=== PATIENT | female | born 1990 | race Caucasian/White ===

== ENCOUNTER 2018-07-26 19:43 | Emergency (ER) | payer MEDICAID ==
[~2018-07-26] VITALS: Ht 177.8 cm; Wt 62.3 kg
[2018-07-26 20:03] VITALS: Ht 177.8 cm; Wt 62.3 kg
[2018-07-26] MEDS ORDERED: SULFAMETHOXAZOL1 TA3 PO (20:05)
[2018-07-26] MEDS ORDERED: ALDACTONE50 MG PO (20:05)
[2018-07-26] MEDS ORDERED: ROBAXIN500 MG PO (21:43)
[2018-07-26] MEDS ORDERED: TORADOL10 MG PO (21:43)
[2018-07-26 22:00] VITALS: BP 122/76
== END 2018-07-26 22:00 | disposition home or self-care (01) ==
LOC: D.ER 19:43
DX: S00.93XA Contusion of unspecified part of head, initial encounter (principal); V43.52XA Car driver injured in collision with other type car in traffic accident, initial encounter; Y93.89 Activity, other specified; Y92.410 Unspecified street and highway as the place of occurrence of the external cause; S16.1XXA Strain of muscle, fascia and tendon at neck level, initial encounter

== ENCOUNTER 2019-08-19 17:42 | Emergency (ER) | payer OTHER ==
[~2019-08-19] VITALS: Ht 177.8 cm; Wt 58.2 kg
[~2019-08-19 17:42] MED LIST: ALDACTONE50 MG PO; ROBAXIN500 MG PO; SULFAMETHOXAZOL1 TA3 PO; TORADOL10 MG PO
[2019-08-19 17:53] VITALS: Ht 177.8 cm; Wt 58.2 kg
[2019-08-19] MEDS ORDERED: STRATTERA80 MG PO (17:54)
[2019-08-19 18:18] LABS: HEMATOCRIT 42.3 % (36.0-48.0); HEMOGLOBIN 14.2 g/dL (12-16); LYMPHOCYTES 28.5 % (15-50); MCH 29.6 pg (26.0-34.0); MCHC 33.6 g/dL (31.0-37.0); MCV 88.1 fL (80.0-100.0); MEAN PLATELET VOLUME 9.3 fL (7.4-10.4); NEUTROPHILS 64.6 % (40-80); PLATELET COUNT 231 10x3/uL (130-400); RDW 11.8 % (11.5-14.5); WBC 6.1 10x3/uL (4.8-10.8)
[2019-08-19 18:31] LABS: CALC OSMOLALITY 275 mosm/kg (275-300); CALCIUM 9.3 mg/dL (8.5-10.1); CARBON DIOXIDE 25.8 mmol/L (21.0-32.0); CHLORIDE - SERUM 103 mmol/L (98-107); CREATININE - SERUM 0.8 mg/dL (0.6-1.3); SODIUM 139 mmol/L (136-145); UREA NITROGEN 12 mg/dL (7-18); eGFR NON AFRICAN AMERICAN 90 mL/min (90-120)
[2019-08-19 18:33] LABS: GLUCOSE 63 mg/dL (74-106)
[2019-08-19 18:47] LABS: ALBUMIN 4.3 g/dL (3.4-5.0); ALKALINE PHOSPHATASE 49 U/L (30-120); ALT (SGPT) 24 U/L (10-68); BILIRUBIN - TOTAL 0.61 mg/dL (0.2-1.3); PROTEIN - SERUM 8.2 g/dL (6.4-8.2)
[2019-08-19 19:59] VITALS: BP 108/59
== END 2019-08-19 19:57 | disposition home or self-care (01) ==
LOC: D.ER 17:42
PROVIDERS: Family Medicine
DX: R05 Cough (principal); R09.89 Other specified symptoms and signs involving the circulatory and respiratory systems; R06.02 Shortness of breath; J45.909 Unspecified asthma, uncomplicated; Z72.0 Tobacco use; Z20.828 Contact with and (suspected) exposure to other viral communicable diseases

== ENCOUNTER 2019-10-19 16:20 | Inpatient (IN) | payer OTHER ==
[~2019-10-19] VITALS: Ht 177.8 cm; Wt 59.1 kg
[~2019-10-19 16:20] MED LIST changes: +STRATTERA80 MG PO
[2019-10-19 17:42] LABS: BASOPHILS 0.1 % (0-2); EOSINOPHILS 1.2 % (0-7); HEMATOCRIT 38.8 % (36.0-48.0); HEMOGLOBIN 13.2 g/dL (12-16); LYMPHOCYTES 15.4 % (15-50); MCH 29.9 pg (26.0-34.0); MEAN PLATELET VOLUME 9.2 fL (7.4-10.4); MONOCYTES 4.2 % (2-11); NEUTROPHILS 78.1 % (40-80); PLATELET COUNT 222 10x3/uL (130-400); RBC 4.41 10x6/uL (4.00-5.40); WBC 7.4 10x3/uL (4.8-10.8)
[2019-10-19 17:54] LABS: INR 1.12 (0.85-1.17); PROTIME 14.3 SECONDS (11.6-15.0)
[2019-10-19 17:55] LABS: CALC OSMOLALITY 271 mosm/kg (275-300); CALCIUM 8.6 mg/dL (8.5-10.1); CARBON DIOXIDE 27.8 mmol/L (21.0-32.0); CHLORIDE - SERUM 103 mmol/L (98-107); CREATININE - SERUM 0.9 mg/dL (0.6-1.3); GLUCOSE 92 mg/dL (74-106); POTASSIUM - SERUM 3.5 mmol/L (3.5-5.1); SODIUM 137 mmol/L (136-145); UREA NITROGEN 8 mg/dL (7-18); eGFR NON AFRICAN AMERICAN 78 mL/min (90-120)
[2019-10-19 17:56] LABS: HCG SERUM NEGATIVE (NEGATIVE)
[2019-10-19 18:01] LABS: ALBUMIN 3.9 g/dL (3.4-5.0); ALKALINE PHOSPHATASE 41 U/L (30-120); ALT (SGPT) 30 U/L (10-68); BILIRUBIN - TOTAL 0.61 mg/dL (0.2-1.3); PROTEIN - SERUM 7.3 g/dL (6.4-8.2)
[2019-10-19 19:16] VITALS: BP 106/40
--- NOTE | 2019-10-19 20:10 | NUR ---
RECEIVED PT TO FLOOR FROM ER VIA STRETCHER. PT APPEARS TO BE HAVING MUSCLE SPASMS. RATES PAIN 7/10. ASSISTED PT UP TO BATHROOM. PT UNSTEADY GAIT AND NEEDS ASSISTANCE GETTING UP AND DOWN. REVIEWED HOME MEDS AND HISTORY. NO OTHER NEEDS. WILL REASSESS AND CONTINUE TO MONITOR.
[2019-10-19] MEDS ORDERED: SMZ/TMP DS TAB 800 PO (20:17)
[2019-10-19] MEDS ORDERED: MIDOL CAPLET1 EACH (20:18)
[2019-10-20 00:42] VITALS: Ht 177.8 cm; Wt 59.1 kg
[2019-10-20 04:00] VITALS: BP 101/49
[2019-10-20 06:15] LABS: BASOPHILS 0 % (0-2); EOSINOPHILS 0 % (0-7); HEMATOCRIT 38.3 % (36.0-48.0); IMMATURE GRANULOCYTES 0.1 % (0-5); LYMPHOCYTES 4.1 % (15-50); MCH 29.7 pg (26.0-34.0); MCHC 33.9 g/dL (31.0-37.0); MCV 87.4 fL (80.0-100.0); MEAN PLATELET VOLUME 9.3 fL (7.4-10.4); MONOCYTES 2.2 % (2-11); NEUTROPHILS 93.6 % (40-80); PLATELET COUNT 231 10x3/uL (130-400); RBC 4.38 10x6/uL (4.00-5.40); RDW 11.9 % (11.5-14.5); WBC 8.7 10x3/uL (4.8-10.8)
[2019-10-20 06:24] LABS: CALC OSMOLALITY 276 mosm/kg (275-300); CALCIUM 8.4 mg/dL (8.5-10.1); CHLORIDE - SERUM 104 mmol/L (98-107); CREATININE - SERUM 0.8 mg/dL (0.6-1.3); GLUCOSE 163 mg/dL (74-106); INR 1.08 (0.85-1.17); POTASSIUM - SERUM 4.1 mmol/L (3.5-5.1); SODIUM 137 mmol/L (136-145); UREA NITROGEN 11 mg/dL (7-18); eGFR NON AFRICAN AMERICAN 90 mL/min (90-120)
[2019-10-20 09:07] VITALS: BP 107/67
[2019-10-20 12:26] VITALS: BP 113/64
[2019-10-20 17:10] VITALS: BP 156/74
--- NOTE | 2019-10-20 19:47 | NUR ---
NOTIFIED CLARISA SHETH OF PATIENT NEEDING SOMETHING TO HELP HER SLEEP AND TINGLING AND FINGERS AND FEET. NEW ORDERS RECIEVED FOR SLEEP AND STATED TO MONITOR TINGLING AND LET PACE KNOW IF NEEDED.
--- NOTE | 2019-10-20 20:40 | NUR ---
LYING IN BED. ALERT AND ORIENTED X4. RESP SHALLOW, NONLABORED. C/O TINGLING IN BILAT HANDS AND "HEELS". REPORTS PAIN IN NECK, BACK AND COCCYX RATING 6. HAS INSURANCE APPLICATION INVESTIGATOR MORPHINE INFUSING WITH 1/2 NS @ 10 ML/HR INFUSING IN RT AC WITHOUT HEAT, EDEMA OR REDNESS. MEDICATED WITH ROBAXIN AND VISTARIL. SCDS IN USE BILAT. HAS BEEN USING I.S. AMB WITH ASSIST X1 TO BR TO VOID. GAIT IS UNSTEADY. SR ELEVATED X2. CL IN REACH.
[2019-10-20 20:45] VITALS: BP 119/64
--- NOTE | 2019-10-20 21:51 | NUR ---
MEDICATED WITH BENADRYL FOR C/O INSOMNIA. CL IN REACH.
--- NOTE | 2019-10-20 22:30 | NUR ---
REQUESTED THAT MIDNIGHT V/S NOT BE TAKEN IF SHE WAS ASLEEP.
--- NOTE | 2019-10-21 00:10 | NUR ---
RESTING QUIETLY WITH EYES CLOSED. NO DISTRESS. RESP NONLABORED. CL IN REACH.
--- NOTE | 2019-10-21 01:41 | NUR ---
LYING ON LT SIDE WITH EYES CLOSED. RESP NONLABORED. NO DISTRESS. CL IN REACH.
--- NOTE | 2019-10-21 02:45 | NUR ---
MEDICATED WITH VISTARIL PER REQUEST FOR C/O SPASMS IN NECK AND BACK. CL IN REACH.
--- NOTE | 2019-10-21 04:40 | NUR ---
MEDICATED WITH ROBAXIN FOR C/O MUSCLE SPASMS IN NECK AND BACK. CL IN REACH.
[2019-10-21 04:49] LABS: BASOPHILS 0 % (0-2); EOSINOPHILS 0 % (0-7); HEMATOCRIT 35.8 % (36.0-48.0); IMMATURE GRANULOCYTES 0.3 % (0-5); LYMPHOCYTES 2.8 % (15-50); MCH 29.4 pg (26.0-34.0); MCHC 33.5 g/dL (31.0-37.0); MCV 87.7 fL (80.0-100.0); MONOCYTES 2.6 % (2-11); NEUTROPHILS 94.3 % (40-80); PLATELET COUNT 216 10x3/uL (130-400); RBC 4.08 10x6/uL (4.00-5.40)
[2019-10-21 05:05] LABS: ALBUMIN 3.3 g/dL (3.4-5.0); ALKALINE PHOSPHATASE 40 U/L (30-120); ALT (SGPT) 22 U/L (10-68); CALC OSMOLALITY 281 mosm/kg (275-300); CALCIUM 8.1 mg/dL (8.5-10.1); CARBON DIOXIDE 27.8 mmol/L (21.0-32.0); CHLORIDE - SERUM 105 mmol/L (98-107); CREATININE - SERUM 0.8 mg/dL (0.6-1.3); GLUCOSE 134 mg/dL (74-106); PROTEIN - SERUM 6.7 g/dL (6.4-8.2); SODIUM 141 mmol/L (136-145); UREA NITROGEN 9 mg/dL (7-18); eGFR NON AFRICAN AMERICAN 90 mL/min (90-120)
[2019-10-21 05:09] LABS: WBC 18.4 10x3/uL (4.8-10.8)
[2019-10-21 05:27] VITALS: BP 110/54
[2019-10-21 08:08] VITALS: BP 97/50
--- NOTE | 2019-10-21 17:00 | NUR ---
OT NOTE: WILL COMPLETE OT EVAL UPON ARRIVAL OF TLSO SECONDARY TO PAIN. ROHITH OTERO,OTR/L
[2019-10-21 17:47] VITALS: BP 109/62
--- NOTE | 2019-10-21 19:30 | NUR ---
PT SITTING UP IN BED WITHOUT DISTRESS, AOX4. IV RIGHT AC INFUSING NS @ 10 WITH DILAUDID HR MANAGER IN PLACE. PT STATES HR MANAGER IS HELPING CONTROL PAIN AT THIS TIME. ROBAXIN GIVEN FOR INTERMITTENT SPASMS. HS MEDS GIVEN. PT STATES RIGHT AV IV SORE, SLIGHTLY RED TO TOUCH. REQUESTED TO BE RESITED. IV RESITED TO LEFT FA X3 ATTEMPTS. REMOVED RIGHT AC WITH CATHETER INTACT. DENIES OTHER NEEDS AT THIS TIME. CL IN REACH, WILL CTM
[2019-10-21 20:00] VITALS: BP 106/61
--- NOTE | 2019-10-21 22:00 | NUR ---
PT SITTING UP IN BED, STATES SHE IS HAVING MORE PAIN AT THIS TIME AFTER AMBULATING TO BATHROOM WITH ASSIST FROM SIGNIFICANT OTHER. VISTARIL GIVEN. PT REQUESTED BENADRYL FOR SLEEP D/T STERIODS KEEPING HER AWAKE. GAVE ORDERED. PROVIDED PT A FAN. STATES IF SHE IS ASLEEP SHE IS REFUSING MIDNIGHT VITALS. DENIES OTHER NEEDS AT THIS TIME. CL IN REACH, WILL CTM
--- NOTE | 2019-10-22 03:30 | NUR ---
ASSISTED PT UP TO BATHROOM. PT DID NOT TOLERATE WELL. SPASMS IN GROIN AREA AND DOWN LEGS. VERY PAINFUL TO PUT WEIGHT ON COCCYX. ONCE ASSISTED BACK IN BED AND POSITIONED FOR COMFORT, DILAUDID BOLUS AND ROBAXIN GIVEN. PT SLEPT ABOUT 5 HOURS AND STATES SHE JUST FELT STIFF. PT HAD NOT USED BRANCH COORDINATOR MUCH DURING THIS TIME WELL. PT ALREADY RELAXING SLIGHTLY BEFORE LEAVING ROOM. WILL CTM
[2019-10-22 04:00] VITALS: BP 109/59
[2019-10-22 07:22] LABS: BASOPHILS 0 % (0-2); EOSINOPHILS 0 % (0-7); HEMATOCRIT 35.9 % (36.0-48.0); HEMOGLOBIN 11.9 g/dL (12-16); IMMATURE GRANULOCYTES 0.3 % (0-5); MCH 29.4 pg (26.0-34.0); MCHC 33.1 g/dL (31.0-37.0); MCV 88.6 fL (80.0-100.0); MONOCYTES 3.9 % (2-11); NEUTROPHILS 90.8 % (40-80); PLATELET COUNT 194 10x3/uL (130-400); RBC 4.05 10x6/uL (4.00-5.40); RDW 12.1 % (11.5-14.5)
[2019-10-22 07:28] LABS: WBC 12.1 10x3/uL (4.8-10.8)
[2019-10-22 07:50] LABS: ALBUMIN 3.3 g/dL (3.4-5.0); ALKALINE PHOSPHATASE 37 U/L (30-120); ALT (SGPT) 24 U/L (10-68); BILIRUBIN - TOTAL 0.22 mg/dL (0.2-1.3); CALC OSMOLALITY 274 mosm/kg (275-300); CALCIUM 8.2 mg/dL (8.5-10.1); CARBON DIOXIDE 26.1 mmol/L (21.0-32.0); CHLORIDE - SERUM 104 mmol/L (98-107); CREATININE - SERUM 0.7 mg/dL (0.6-1.3); GLUCOSE 138 mg/dL (74-106); POTASSIUM - SERUM 3.9 mmol/L (3.5-5.1); PROTEIN - SERUM 6.6 g/dL (6.4-8.2); SODIUM 137 mmol/L (136-145); UREA NITROGEN 9 mg/dL (7-18); eGFR NON AFRICAN AMERICAN > 90 mL/min (90-120)
[2019-10-22 08:00] VITALS: BP 118/62
--- NOTE | 2019-10-22 10:49 | MORECARE ---
CASE MANAGEMENT DISCHARGE SUMMARY PATIENT: EDEL VAZ UNIT: [id number] ADM DATE: 10/20/19 AGE: 29 : 90 SEX: F ROOM/BED: D.2234 AUTHOR: BOOM MCGUIRE PHYSICIAN: REFERRING PHYSICIAN: [place] MD DATE OF SERVICE: 10/22/19 Discharge Plan Patient Name: EDEL VAZ Facility: [facility]:[place] : 1990 Planned Disposition: Anticipated Discharge Date: Discharge Date: Expected LOS: Initial Reviewer: [id number] Initial Review Date: 10/22/2019 Generated: 10/22/19 11:49 am Comments DCP- Discharge Planning Updated by [id number]: Nayla Edwards on 10/22/19 9:[address] Patient Name: EDEL VAZ Admission Status: ER Accout number: [id number] Admission Date: 10-20-2019 : 1990 Admission Diagnosis: Attending: [place] Current LOS: 2 Anticipated DC Date: Planned Disposition: Primary Insurance: [facility] MANAGED MEDICAID Discharge Planning Comments: CM met with patient at bedside after explaining CM role and obtaining verbal consent. CM discussed availability / needs of home health, REHAB and medical equipment. PATIENT STATES IF NEEDS PT WOULD LIKE [facility] FOR PT. BE SIGNED. CM WILL FOLLOW AND ASSIST NEEDED. Surface Logging Systems Logger: Nayla Edwards DCPIA - Discharge Planning Initial Assessment Updated by [email or web address]: Nayla Edwards on 10/22/19 10:47 am * Is the patient Alert and Oriented? Yes * PCP NONE * Pharmacy [facility] * Preadmission Environment Home with Family * ADLs Independent * Can the patient safely return to the preadmission environment? Yes * Has this patient been hospitalized within the prior 30 days at any hospital? No Coverage Notice Reviewer: [id number] - Nayla Edwards Notice Issued Date-Time: 10/22/2019 10:49 Notice Type: Patient Choice Letter Notice Delivered To: Relationship to Patient: Guest Services Associate Name: Delivery Method: - Magda Days: Prior Verbal Notification: Recipient Understood Notice: Recipient Signature: Med Rec Note Co-signed by Attending: Coverage Notice Comment: Patient Name: EDEL VAZ Page [phone] at 1049 All edits/amendments must be made on the electronic document DICTATION DATE: 10/22/191048 MAINTENANCE HELPER: TAISHA 10/22/19 1049 RPT#: [id number] DC DATE: STATUS: ADM IN [facility] [address] [place] [address] END OF REPORT
--- NOTE | 2019-10-22 10:58 | MORECARE ---
CASE MANAGEMENT DISCHARGE SUMMARY PATIENT: EDEL VAZ UNIT: [id number] ADM DATE: 10/20/19 AGE: 29 : 90 SEX: F ROOM/BED: D.2234 AUTHOR: MAYNOR,DOC PHYSICIAN: REFERRING PHYSICIAN: [place] MD DATE OF SERVICE: 10/22/19 Discharge Plan Patient Name: EDEL VAZ Facility: [facility]:[place] : 1990 Planned Disposition: Anticipated Discharge Date: Discharge Date: Expected LOS: Initial Reviewer: [id number] Initial Review Date: 10/22/2019 Generated: 10/22/19 11:57 am Comments DCP- Discharge Planning Updated by [email or web address]: Nayla Edwards on 10/22/19 9:[address] Patient Name: EDEL VAZ Admission Status: ER Accout number: [id number] Admission Date: 10-20-2019 : 1990 Admission Diagnosis: Attending: [place] Current LOS: 2 Anticipated DC Date: Planned Disposition: Primary Insurance: [facility] Discharge Planning Comments: CM met with patient at bedside after explaining CM role and obtaining verbal consent. CM discussed availability / needs of home health, REHAB and medical equipment. PATIENT STATES IF NEEDS PT WOULD LIKE [facility] FOR PT. BE SIGNED. CM WILL FOLLOW AND ASSIST NEEDED. Sales And Marketing Representative: Nayla Edwards DCPIA - Discharge Planning Initial Assessment Updated by [id number]: Nayla Edwards on 10/22/19 10:47 am * Is the patient Alert and Oriented? Yes * PCP NONE * Pharmacy [facility] * Preadmission Environment Home with Family * ADLs Independent * Can the patient safely return to the preadmission environment? Yes * Has this patient been hospitalized within the prior 30 days at any hospital? No Coverage Notice Reviewer: [id number] - Nayla Edwards Notice Issued Date-Time: 10/22/2019 10:49 Notice Type: Patient Choice Letter Notice Delivered To: Relationship to Patient: Fruit Trimmer Name: Delivery Method: HAND - Hand Delivered Magda Days: Prior Verbal Notification: Recipient Understood Notice: Yes Recipient Signature: Yes Med Rec Note Co-signed by Attending: Coverage Notice Comment: [facility] IF NEEDED FOR PT Last DP export: 10/22/19 9:49 a Patient Name: EDEL VAZ Page [phone] at 1058 All edits/amendments must be made on the electronic document DICTATION DATE: 10/22/191056 DIVISION SUPERINTENDENT: TAISHA 10/22/191056 RPT#: [id number] DC DATE: STATUS: ADM IN [facility] [address] [place] [address] END OF REPORT
[2019-10-22 12:00] VITALS: BP 116/64
[2019-10-22 16:00] VITALS: BP 104/59
--- NOTE | 2019-10-22 18:45 | NUR ---
PATIENT IN BED WITH IV INTACT. NO COMPLAINTS OR SIGNS OF DISTRESS. IV INTACT. CALL LIGHT WITHIN REACH.
--- NOTE | 2019-10-22 19:30 | NUR ---
PT SITTING UP IN BED WITHOUT DISTRESS, AOX4. IV LEFT FA INFUSING NS @ [facility] WITH DILAUDID PROFESSOR/NURSE ANESTHETIST. PT USING PROFESSOR/NURSE ANESTHETIST FOR BREAKTHROUGH PAIN. ASSISTED PT UP TO BATHROOM WITH TSLO BRACE ON. PT TOLERATED WELL. ONCE BACK IN BED PT POSITIONED FOR COMFORT. SCDS ON. ENCOURAGED IS. DENIES OTHER NEEDS. CL IN REACH, WILL CTM
--- NOTE | 2019-10-22 20:15 | NUR ---
PT STATES PAIN 8/10 AND IS TRYING TO ONLY USE STREETCAR CONDUCTOR FOR BREAKTHROUGH PAIN. GAVE NORCO FOR PAIN. PT MOM HERE TO HELP PT WITH SHOWER. PROVIDED PT WITH TOWELS AND WASH CLOTHS. DENIES OTHER NEEDS AT THIS TIME. WILL CTM
--- NOTE | 2019-10-22 21:45 | NUR ---
PT BACK IN BED AFTER SHOWER. REQUESTING VISTARIL FOR PAIN AND BENADRYL TO HELP HER SLEEP. GAVE ORDERED. MOTHER AT BEDSIDE. DENIES OTHER NEEDS. CL IN REACH, WILL CTM
--- NOTE | 2019-10-22 23:20 | NUR ---
PT ASSISTED UP TO BATHROOM, SBA. TOLERATED WELL. DENIES NEEDS AT THIS TIME. WILL CTM
--- NOTE | 2019-10-23 00:15 | NUR ---
NORCO GIVEN FOR PAIN 11/04. DENIES OTHER NEEDS. SCDS ON, CL IN REACH, WILL CTM
--- NOTE | 2019-10-23 03:20 | NUR ---
PT ASSISTED UP TO BATHROOM AND BACK TO BED. STATES SHE IS SORE AND STIFF. TOLERATED AMBULATING WELL. GAVE ROBAXIN FOR SPASMS. PROVIDED WARM BLANKET. DENIES OTHER NEEDS. WILL CTM
[2019-10-23 04:00] VITALS: BP 95/55
[2019-10-23 06:42] LABS: BASOPHILS 0 % (0-2); EOSINOPHILS 0.1 % (0-7); HEMATOCRIT 38.5 % (36.0-48.0); HEMOGLOBIN 12.8 g/dL (12-16); IMMATURE GRANULOCYTES 0.5 % (0-5); LYMPHOCYTES 7.3 % (15-50); MCH 29.7 pg (26.0-34.0); MCHC 33.2 g/dL (31.0-37.0); MCV 89.3 fL (80.0-100.0); MEAN PLATELET VOLUME 9.5 fL (7.4-10.4); MONOCYTES 4.9 % (2-11); NEUTROPHILS 87.2 % (40-80); PLATELET COUNT 218 10x3/uL (130-400); RBC 4.31 10x6/uL (4.00-5.40); RDW 11.9 % (11.5-14.5); WBC 10.7 10x3/uL (4.8-10.8)
[2019-10-23 07:23] LABS: ALBUMIN 3.2 g/dL (3.4-5.0); ALKALINE PHOSPHATASE 46 U/L (30-120); CALC OSMOLALITY 272 mosm/kg (275-300); CALCIUM 8.2 mg/dL (8.5-10.1); CARBON DIOXIDE 26.2 mmol/L (21.0-32.0); CHLORIDE - SERUM 105 mmol/L (98-107); CREATININE - SERUM 0.7 mg/dL (0.6-1.3); GLUCOSE 104 mg/dL (74-106); PROTEIN - SERUM 6.6 g/dL (6.4-8.2); SODIUM 137 mmol/L (136-145); UREA NITROGEN 11 mg/dL (7-18); eGFR NON AFRICAN AMERICAN > 90 mL/min (90-120)
[2019-10-23 07:29] LABS: ALT (SGPT) 33 U/L (10-68)
--- NOTE | 2019-10-23 07:43 | NUR ---
ALERT AND ORIENTED. LUNGS CLEAR BILATERALLY. HEART SOUNDS S1 AND S2 HEARD IN ALL ADKINS. BOWEL SOUNDS ACTIVE X 4. IV TO LFA PATENT WITHOUT REDNESS. DENIES NEEDS. BED LOW. CALL VICENTE AND PERSONAL ITEMS IN REACH. WILL CONTINUE TO MONITOR.
[2019-10-23 08:48] VITALS: BP 101/42
[2019-10-23] MEDS ORDERED: PROTONIX40 MG PO (12:39)
[2019-10-23] MEDS ORDERED: COLACE100 MG PO (12:39)
[2019-10-23] MEDS ORDERED: MEDROL DOSE PACK4 MG PO (12:40)
[2019-10-23] MEDS ORDERED: ZOFRAN ODT4 MG/UDTAB PO (12:40)
[2019-10-23] MEDS ORDERED: VISTARIL50 MG PO (12:41)
[2019-10-23] MEDS ORDERED: HYDROCODON-ACE1 EA10 PO (12:41)
[2019-10-23] MEDS ORDERED: ROBAXIN PO (12:41)
--- NOTE | 2019-10-23 12:43 | NUR ---
PRESS TENDER [employer] GOODS DC PER ORDER.
[2019-10-23 13:07] VITALS: BP 99/60
--- NOTE | 2019-10-23 13:07 | MORECARE ---
CASE MANAGEMENT DISCHARGE SUMMARY PATIENT: EDEL VAZ UNIT: [id number] ADM DATE: 10/20/19 AGE: 29 : 90 SEX: F ROOM/BED: D.2234 AUTHOR: MAYNOR,DOC PHYSICIAN: REFERRING PHYSICIAN: [place] MD DATE OF SERVICE: 10/23/19 Discharge Plan Patient Name: EDEL VAZ Facility: [facility]:[place] : 1990 Planned Disposition: Anticipated Discharge Date: Discharge Date: Expected LOS: Initial Reviewer: [id number] Initial Review Date: 10/22/2019 Generated: 10/23/19 2:07 pm Comments DCP- Discharge Planning Updated by [id number]: Nayla Edwards on 10/23/19 12:[address] Patient Name: EDEL VAZ Admission Status: ER Accout number: [id number] Admission Date: 10-20-2019 : 1990 Admission Diagnosis:UNSPECIFIED INJURY OF THORAX, INITIAL ENCOUNTER Attending: DIAM[place] Current LOS: 3 Anticipated DC Date: Planned Disposition: Primary Insurance: [employer] MANAGED MEDICAID Discharge Planning Comments: PATIENT TO DC TO HOME TODAY. [facility] FOR [facility] AND PT. FAXED DOCUMENTS. CM TO FOLLOW NEEDED. Tax Map Technician: Nayla Edwards DCP- Discharge Planning Updated by [id number]: Nayla Edwards on 10/22/19 9:[address] Patient Name: EDEL VAZ Admission Status: ER Accout number: [id number] Admission Date: 10-20-2019 : 1990 Admission Diagnosis: Attending: DIAM[place] Current LOS: 2 Anticipated DC Date: Planned Disposition: Primary Insurance: [employer] MANAGED MEDICAID Discharge Planning Comments: CM met with patient at bedside after explaining CM role and obtaining verbal consent. CM discussed availability / needs of home health, REHAB and medical equipment. PATIENT STATES IF NEEDS PT WOULD LIKE [facility] FOR PT. BE SIGNED. CM WILL FOLLOW AND ASSIST NEEDED. Tax Map Technician: Nayla Edwards DCPIA - Discharge Planning Initial Assessment Updated by [email or web address]: Nayla Edwards on 10/22/19 10:47 am * Is the patient Alert and Oriented? Yes * PCP NONE * Pharmacy [facility] * Preadmission Environment Home with Family * ADLs Independent * Can the patient safely return to the preadmission environment? Yes * Has this patient been hospitalized within the prior 30 days at any hospital? No Coverage Notice Reviewer: [id number] Mali Edwards Notice Issued Date-Time: 10/22/2019 10:49 Notice Type: Patient Choice Letter Notice Delivered To: Relationship to Patient: Airline Managerial Supervisor Name: Delivery Method: HAND - Hand Delivered Magda Days: Prior Verbal Notification: Recipient Understood Notice: Yes Recipient Signature: Yes Med Rec Note Co-signed by Attending: Coverage Notice Comment: [facility] IF NEEDED FOR PT Last DP export: 10/22/19 9:58 a Patient Name: EDEL VAZ Page 36819 at 1307 All edits/amendments must be made on the electronic document DICTATION DATE: 10/23/19 1307 LEATHER SPRAYER: TAISHA 10/23/19 1307 RPT#: [id number] DC DATE: STATUS: ADM IN [facility] [address] [place] [address] END OF REPORT
--- NOTE | 2019-10-23 13:27 | MORECARE ---
CASE MANAGEMENT DISCHARGE SUMMARY PATIENT: EDEL VAZ UNIT: [id number] ADM DATE: 10/20/19 AGE: 29 : [birth year] SEX: F ROOM/BED: D.2234 AUTHOR: MAYNORDOC PHYSICIAN: REFERRING PHYSICIAN: [place] MD DATE OF SERVICE: 10/23/19 Discharge Plan Patient Name: EDEL VAZ Facility: [facility]:[place] : 1990 Planned Disposition: Anticipated Discharge Date: Discharge Date: Expected LOS: Initial Reviewer: [id number] Initial Review Date: 10/22/2019 Generated: 10/23/19 2:27 pm Comments DCP- Discharge Planning Updated by [id number]: Nayla Edwards on 10/23/19 12:[address] Patient Name: EDEL VAZ Admission Status: ER Accout number: [id number] Admission Date: 10-20-2019 : 1990 Admission Diagnosis:UNSPECIFIED INJURY OF THORAX, INITIAL ENCOUNTER Attending: [place]AM[place] Current LOS: 3 Anticipated DC Date: Planned Disposition: Primary Insurance: [employer] MANAGED MEDICAID Discharge Planning Comments: PATIENT TO DC TO HOME TODAY. [facility] FOR [facility] AND PT. FAXED DOCUMENTS. CM TO FOLLOW NEEDED. Blemish Remover: Nayla Edwards Appended by Nayla Edwards on 10/23/2019 13:26 CDT: [facility] TO BRING WALKER TO HER ROOM. DCP- Discharge Planning Updated by [email or web address]: Nayla Edwards on 10/22/19 9:[address] Patient Name: EDEL VAZ Admission Status: ER Accout number: [id number] Admission Date: 10-20-2019 : 1990 Admission Diagnosis: Attending: DIAM[place] Current LOS: 2 Anticipated DC Date: Planned Disposition: Primary Insurance: [employer] MANAGED MEDICAID Discharge Planning Comments: CM met with patient at bedside after explaining CM role and obtaining verbal consent. CM discussed availability / needs of home health, REHAB and medical equipment. PATIENT STATES IF NEEDS PT WOULD LIKE [facility] FOR PT. BE SIGNED. CM WILL FOLLOW AND ASSIST NEEDED. Blemish Remover: Nayla Edwards DCPIA - Discharge Planning Initial Assessment Updated by [id number]: Nayla Edwards on 10/22/19 10:47 am * Is the patient Alert and Oriented? Yes * PCP NONE * Pharmacy [facility] * Preadmission Environment Home with Family * ADLs Independent * Can the patient safely return to the preadmission environment? Yes * Has this patient been hospitalized within the prior 30 days at any hospital? No External Providers External Provider: [facility] Next Contact Date: Service Request Date: Service Type: Resolution: Reviewer: Comments: Coverage Notice Reviewer: [id number] - Nayla Edwards Notice Issued Date-Time: 10/22/2019 10:49 Notice Type: Patient Choice Letter Notice Delivered To: Relationship to Patient: Rn Imaging Name: Delivery Method: HAND - Hand Delivered Magda Days: Prior Verbal Notification: Recipient Understood Notice: Yes Recipient Signature: Yes Med Rec Note Co-signed by Attending: Coverage Notice Comment: [facility] IF NEEDED FOR PT Last DP export: 10/23/19 12:08 p Patient Name: EDEL VAZ Page 20469 at 1327 All edits/amendments must be made on the electronic document DICTATION DATE: 10/23/19 1327 A&P TECHNICIAN: TAISHA 10/23/19 1327 RPT#: [id number] DC DATE: STATUS: ADM IN [facility] [address] [place] [address] END OF REPORT
--- NOTE | 2019-10-23 15:45 | NUR ---
DC PAPERWORK DONE. WAITING HOME WALKER DELIVERY.
--- NOTE | 2019-10-23 16:03 | NUR ---
DISCHARGE EDUCATION PROVIDED BOTH WRITTEN AND VERBAL. VERBALIZED UNDERSTANDING. DENIES FURTHER QUESTIONS. IV REMOVED FROM LFA WITH TIP INTACT. WALKER IN ROUTE TO HOSPITAL.
--- NOTE | 2019-10-23 16:15 | NUR ---
OT NOTE: UPON ENTERING PT STANDING AT SIDE OF BED WITH BACK BRACE IN PLACE. PT COMPLETED ADL MOB WITH RW WITH SBA/CGA. PT COMPLETED FLORIAN SHOES/SLIPPERS WITH MIN A WHILE STANDING . PT EXHIBITED DECREASED PAIN WITH DYNAMIC MOVEMENT. PT EXHIBITED INCREASED AX TOLERANCE. [id number] THANK YOU,HUMA QUINTANA
--- NOTE | 2019-10-23 17:18 | NUR ---
PATIENT DC HOME WITH ALL BELONGINGS.
--- NOTE | 2019-10-24 08:41 | MORECARE ---
CASE MANAGEMENT DISCHARGE SUMMARY PATIENT: EDEL VAZ UNIT: [id number] ADM DATE: 10/20/19 AGE: 29 : [birth year] SEX: F ROOM/BED: D.2234 AUTHOR: MAYNORDOC PHYSICIAN: REFERRING PHYSICIAN: [place]AM[place]KE MD DATE OF SERVICE: 10/24/19 Discharge Plan Patient Name: EDEL VAZ Facility: [facility]:[place] : 1990 Planned Disposition: Anticipated Discharge Date: Discharge Date: 10/23/2019 Expected LOS: Initial Reviewer: [id number] Initial Review Date: 10/22/2019 Generated: 10/24/19 9:40 am Comments DCP- Discharge Planning Updated by [email or web address]: Nayla Edwards on 10/23/19 12:[address] Patient Name: EDEL VAZ Admission Status: ER Accout number: [id number] Admission Date: 10-20-2019 : 1990 Admission Diagnosis:UNSPECIFIED INJURY OF THORAX, INITIAL ENCOUNTER Attending: DIAM[place]KE Current LOS: 3 Anticipated DC Date: Planned Disposition: Primary Insurance: [employer] MANAGED MEDICAID Discharge Planning Comments: PATIENT TO DC TO HOME TODAY. [facility] FOR NSG AND PT. FAXED DOCUMENTS. CM TO FOLLOW NEEDED. Tribal Council Member: Nayla Edwards Appended by Nayla Edwards on 10/23/2019 13:26 CDT: [facility]RI[facility] TO BRING WALKER TO HER ROOM. DCP- Discharge Planning Updated by [email or web address]: Nayla Edwards on 10/22/19 9:[address] Patient Name: EDEL VAZ Admission Status: ER Accout number: [id number] Admission Date: 10-20-2019 : 1990 Admission Diagnosis: Attending: [place]AM[place] Current LOS: 2 Anticipated DC Date: Planned Disposition: Primary Insurance: [employer] MANAGED MEDICAID Discharge Planning Comments: CM met with patient at bedside after explaining CM role and obtaining verbal consent. CM discussed availability / needs of home health, REHAB and medical equipment. PATIENT STATES IF NEEDS PT WOULD LIKE [facility] FOR PT. BE SIGNED. CM WILL FOLLOW AND ASSIST NEEDED. Tribal Council Member: Nayla Edwards DCPIA - Discharge Planning Initial Assessment Updated by [email or web address]: Nayla Edwards on 10/22/19 10:47 am * Is the patient Alert and Oriented? Yes * PCP NONE * Pharmacy [facility] * Preadmission Environment Home with Family * ADLs Independent * Can the patient safely return to the preadmission environment? Yes * Has this patient been hospitalized within the prior 30 days at any hospital? No Coverage Notice Reviewer: [email or web address] Mali Edwards Notice Issued Date-Time: 10/22/2019 10:49 Notice Type: Patient Choice Letter Notice Delivered To: Relationship to Patient: Gun Fitter Name: Delivery Method: HAND - Hand Delivered Magda Days: Prior Verbal Notification: Recipient Understood Notice: Yes Recipient Signature: Yes Med Rec Note Co-signed by Attending: Coverage Notice Comment: [facility] IF NEEDED FOR PT Last DP export: 10/23/19 12:27 p Patient Name: EDEL VAZ Page 11083 at 0841 All edits/amendments must be made on the electronic document DICTATION DATE: 10/24/19839 FACILITY DESIGNER: TAISHA 10/24/19839 RPT#: [id number] DC DATE:10/23/19 STATUS: DIS IN [facility] [address] [place] [address] END OF REPORT
== END 2019-10-23 17:18 | disposition home or self-care (01) | DRG 552 ==
LOC: D.ER 16:20 → D.MS 18:53 → OBSVTIME 19:28 → D.MS 10-20 16:04
PROVIDERS: Family Medicine; ADMIT Internal Medicine Nephrology; ATTEND Internal Medicine Nephrology
DX: S22.079A Unspecified fracture of T9-T10 vertebra, initial encounter for closed fracture (principal); M51.04 Intervertebral disc disorders with myelopathy, thoracic region; S22.089A Unspecified fracture of T11-T12 vertebra, initial encounter for closed fracture; M48.04 Spinal stenosis, thoracic region; J45.909 Unspecified asthma, uncomplicated; F90.9 Attention-deficit hyperactivity disorder, unspecified type; W17.89XA Other fall from one level to another, initial encounter